=== PATIENT | female | born 1950 | race Caucasian/White ===

== ENCOUNTER → 2016-08-10 | Outpatient (CLI) | payer MEDICARE, OTHER | LOC: MC.RAD 09:20 | DX: Z12.31 Encounter for screening mammogram for malignant neoplasm of breast (principal) ==

== ENCOUNTER → 2016-08-27 | Outpatient (CLI) | payer MEDICARE, OTHER | LOC: COL.RAD 08:26 | DX: N81.10 Cystocele, unspecified (principal) ==

== ENCOUNTER → 2017-08-12 | Outpatient (CLI) | payer MEDICARE, OTHER | LOC: MC.RAD 14:24 | DX: Z12.31 Encounter for screening mammogram for malignant neoplasm of breast (principal) ==

== ENCOUNTER 2017-11-26 09:52 | Emergency (ER) | payer MEDICARE, OTHER ==
[2005-04-28 07:39] VITALS: BP 129/74
[~2017-11-26] VITALS: Ht 149.9 cm; Wt 59.1 kg
[2017-11-26 10:03] VITALS: TEMP 97
[2017-11-26 10:29] LABS: BASO # 0.1 (0.0-0.2); BASO % 1.1 % (0.0-2.0); EOS # 0.1 (0.0-0.7); EOS % 2.1 % (0-4.0); GRAN # 3.1 (1.4-6.5); GRAN % 54.2 % (42.2-75.2); HEMATOCRIT 38.3 % (37.0-47.0); HEMOGLOBIN 13.1 g/dl (12.5-16.0); LYMPH # 1.9 (1.2-3.4); LYMPH % 33.6 % (20.0-51.0); MEAN CELL VOLUME 87 fl (80.0-100.0); MEAN CORPUSCULAR HEMOGLOBIN 30 pg (27.0-31.0); MEAN CORPUSCULAR HGB CONC 34 g/dl (33.0-37.0); MEAN PLATELET VOLUME 10.7 fl (7.4-10.4); MONO # 0.5 (0.1-0.6); MONO % 8.6 % (1.7-9.3); PLATELET COUNT 246 K/mm3 (130-400); RED BLOOD COUNT 4.41 M/mm3 (4.10-5.30); REDCELL DISTRIBUTION WIDTH-CV 12.4 % (11.5-14.5)
[2017-11-26] MEDS ORDERED: CELEXA 20MG20 MG/TAB PO (10:39)
[2017-11-26] MEDS ORDERED: EPA FISH OIL1 SGL PO (10:39)
[2017-11-26] MEDS ORDERED: NORVASC 5MG5 MG/TAB PO (10:39)
[2017-11-26] MEDS ORDERED: HYZAAR 25 MG-101 TAB PO (10:40)
[2017-11-26] MEDS ORDERED: PRILOSEC 20MG20 MG PO (10:40)
[2017-11-26] MEDS ORDERED: VITAMIN D 50,1.25 MG PO (10:41)
[2017-11-26 10:52] LABS: INR 0.9 (0.8-3.0); PROTHROMBIN TIME 10.5 SECONDS (9.7-12.8)
[2017-11-26 10:55] LABS: PARTIAL THROMBOPLASTIN TIME 34.9 SECONDS (26.0-37.0)
[2017-11-26 10:58] LABS: ALANINE AMINOTRANSFERASE 25 U/L (9-52); ALBUMIN 4.2 gm/dL (3.5-5.0); ALKALINE PHOSPHATASE 92 U/L (50-136); ANION GAP 13 mmol/L (7-16); AST,SGOT 23 U/L (15-37); BILIRUBIN,TOTAL 0.4 mg/dL (0.0-1.0); BLOOD UREA NITROGEN 14 mg/dL (7-17); CALCIUM 9.9 mg/dL (8.4-10.2); CARBON DIOXIDE 24 mmol/L (22-30); CHLORIDE 102 mmol/L (98-107); CREATININE, serum 0.71 mg/dL (0.52-1.25); GLUCOSE 99 mg/dL (74-106); LIPASE 143 U/L (23-300); POTASSIUM 3.4 mmol/L (3.4-5.0); SODIUM 140 mmol/L (137-145)
[2017-11-26 11:11] LABS: TROPONIN-I < 0.012 ng/mL (0.000-0.034)
[2017-11-26 11:25] LABS: COLLECTION METHOD CLEAN CATCH
[2017-11-26 11:33] LABS: MUCOUS Present /lpf; PH 8 (5-8); URINE APPEARANCE Clear; URINE BACTERIA None Seen /hpf; URINE BILIRUBIN Negative (NEGATIVE); URINE BLOOD Negative (NEGATIVE); URINE COLOR Straw; URINE GLUCOSE Negative (NEGATIVE); URINE KETONE Negative (NEGATIVE); URINE LEUKOCYTE ESTERASE Negative (NEGATIVE); URINE NITRATE Negative (NEGATIVE); URINE PROTEIN(semi-quant) Negative (NEGATIVE); URINE RBC None Seen /hpf; URINE UROBILINOGEN Negative (NEGATIVE)
[2017-11-26] MEDS ORDERED: TOPROL XL 25MG25 MG PO (14:32)
[2017-11-26 14:58] VITALS: BP 150/80; PULSE 60
== END 2017-11-26 15:20 | disposition home or self-care (01) ==
LOC: COL.ER 09:52
PROVIDERS: Emergency Medicine
DX: R07.89 Other chest pain (principal); I10 Essential (primary) hypertension; E78.5 Hyperlipidemia, unspecified; K21.9 Gastro-esophageal reflux disease without esophagitis; E78.00 Pure hypercholesterolemia, unspecified; Z98.890 Other specified postprocedural states
CPT/HCPCS: J7030; Q9967

== ENCOUNTER → 2017-11-29 | Outpatient (CLI) | payer MEDICARE, OTHER ==
[~2017-11-29] VITALS: Ht 149.9 cm; Wt 59.8 kg
[~2017-11-29] MED LIST: CELEXA 20MG20 MG/TAB PO; EPA FISH OIL1 SGL PO; HYZAAR 25 MG-101 TAB PO; NORVASC 5MG5 MG/TAB PO; PRILOSEC 20MG20 MG PO; TOPROL XL 25MG25 MG PO; VITAMIN D 50,1.25 MG PO
[2017-11-29 07:15] VITALS: BP 151/79; PULSE 56
[2017-11-29 09:04] VITALS: BP 155/65; PULSE 47
[2017-11-29 09:10] VITALS: BP 134/71; PULSE 79
[2017-11-29 09:11] VITALS: BP 168/78; PULSE 83
[2017-11-29 09:12] VITALS: BP 167/82; PULSE 81
[2017-11-29 09:13] VITALS: BP 164/79; PULSE 77
== END ==
LOC: COL.CARD 06:58
DX: I44.0 Atrioventricular block, first degree (principal); R00.1 Bradycardia, unspecified
CPT/HCPCS: A9502; J2785

== ENCOUNTER → 2018-09-01 | Outpatient (CLI) | payer MEDICARE, OTHER | LOC: MC.RAD 09:42 | DX: Z12.31 Encounter for screening mammogram for malignant neoplasm of breast (principal) ==

== ENCOUNTER → 2019-11-01 | Outpatient (CLI) | payer MEDICARE, OTHER | LOC: MC.RAD 13:29 | DX: Z12.31 Encounter for screening mammogram for malignant neoplasm of breast (principal) ==

== ENCOUNTER → 2019-11-30 | Outpatient (CLI) | payer MEDICARE, OTHER | LOC: COL.RAD 12:30 | DX: R07.81 Pleurodynia (principal); R07.89 Other chest pain | CPT/HCPCS: Q9967 ==

== ENCOUNTER → 2020-11-04 | Outpatient (CLI) | payer MEDICARE | LOC: MC.RAD 10:45 | DX: Z12.31 Encounter for screening mammogram for malignant neoplasm of breast (principal) ==

== ENCOUNTER 2023-03-10 08:25 | Day surgery (SDC) | payer MEDICARE, OTHER ==
[~2023-03-10] VITALS: Ht 149.9 cm; Wt 59.1 kg
[~2023-03-10 08:25] MED LIST changes: -CELEXA 20MG20 MG/TAB PO; +CELEXA10 MG PO; +MASON NATURAL2000 IU PO; +PRIL40 PO; -PRILOSEC 20MG20 MG PO; -VITAMIN D 50,1.25 MG PO
[2023-03-10 08:36] VITALS: BP 127/64; PULSE 56; TEMP 97.7
[2023-03-10] MEDS ORDERED: LIPITOR 40MG TA40 MG PO (08:55)
[2023-03-10] MEDS ORDERED: LIALDA 1.2 GM1.2 GM PO (08:55)
--- NOTE | 2023-03-10 09:05 | NUR ---
The patient ambulated back to [place] [facility] independently using a steady gait and appeared to tolerate activity well. Vital signs obtained. Consent signed. Assessment completed. Home medications reconcilled. 20G IV started in right wrist with one stick, LR Infusing without difficulty. Call light is within reach. Warm blankets provided. at bedside. Denies any further needs.
[2023-03-10 10:05] VITALS: BP 124/60; PULSE 60; TEMP 96.5
[2023-03-10 10:15] VITALS: BP 133/86; PULSE 57
[2023-03-10 10:30] VITALS: BP 139/66; PULSE 61
--- NOTE | 2023-03-10 10:50 | NUR ---
1005- PATIENT RETURNS TO [facility] VIA CART. PT AWAKE AND ALERT. RESPIRATIONS UNLABORED. AMBULATED TO RECLINER CHAIR WITH 2:1 SBA. PT DENIES NAUSEA OR ABDOMINAL PAIN. HOOKED UP TO MONITOR AND VS OBTAINED. CALL LIGHT AT SIDE AND PRESENT. 1010- DR. CARLISLE IN ROOM SPEAKING WITH PATIENT. 1025- PATIENT TOLERATING CRACKERS AND COFFEE WITHOUT NAUSEA. 1038- D/C INSTRUCTIONS REVIEWED WITH PATIENT. PT VERBALIZED UNDERSTANDING AND A COPY OF INSTRUCTIONS PROVIDED IN D/C FOLDER. 1044- PATIENT DRESSES SELF. 1050- PATIENT DISCHARGED FROM UNIT VIA W/C TO A PERSONAL VEHICLE. PT LEFT HOSPITAL IN STABLE CONDITION.
== END 2023-03-10 10:50 | disposition home or self-care (01) ==
LOC: SDCO 08:25
DX: K63.5 Polyp of colon (principal); K63.89 Other specified diseases of intestine; K57.30 Diverticulosis of large intestine without perforation or abscess without bleeding; K21.9 Gastro-esophageal reflux disease without esophagitis; K51.011 Ulcerative (chronic) pancolitis with rectal bleeding; Z90.49 Acquired absence of other specified parts of digestive tract; Z79.899 Other long term (current) drug therapy; Z98.0 Intestinal bypass and anastomosis status
CPT/HCPCS: J2704; J7120